=== PATIENT | female | born 1985 | race Caucasian/White ===

== ENCOUNTER 2017-04-02 06:10 | Inpatient (IN) | payer MEDICAID ==
[2017-04-02] MEDS ORDERED: MISOPROSTOL 200 MCG TAB PR ×2 (07:00→10:00)
[2017-04-02] MEDS ORDERED: OXYTOCIN 30 UNITS/LR 500 ML IV ×2 (07:00→10:00)
[2017-04-02] MEDS ORDERED: CARBOPROST 250 MCG INJ IM ×2 (07:00→10:00)
[2017-04-02] MEDS ORDERED: LIDOCAINE 1% (MPF) 30 ML INJ INJ (07:00)
[2017-04-02] MEDS ORDERED: BUTORPHANOL 2 MG INJ IV ×2 (07:00)
[2017-04-02] MEDS ORDERED: METHYLERGONOVINE 0.2 MG INJ IM ×2 (07:00→10:00)
[2017-04-02] MEDS: LACTATED RINGER'S 1,000 ML IV ×2 (08:05→17:54)
[2017-04-02] MEDS: AMPICILLIN 2 GM/NS (PMX) 100 ML IV (08:16)
[2017-04-02] MEDS: OXYTOCIN 30 UNITS/LR 500 ML IV ×2 (09:57→09:58)
[2017-04-02] MEDS ORDERED: ONDANSETRON 4 MG INJ IV (10:00)
[2017-04-02] MEDS ORDERED: DIPHENHYDRAMINE 50 MG INJ IV (10:00)
[2017-04-02] MEDS ORDERED: DIBUCAINE 1% 30 GM OINT PR (10:00)
[2017-04-02] MEDS ORDERED: DIPHENHYDRAMINE 25 MG CAP PO (10:00)
[2017-04-02] MEDS ORDERED: OXYCODONE/ASPIRIN (4.88/325) TAB PO ×2 (10:00)
[2017-04-02] MEDS ORDERED: SENNA/DOCUSATE NA (8.6MG/50MG) TAB PO (10:00)
[2017-04-02 10:02] LABS: ADD MAN DIFF? NO
[2017-04-02 10:11] LABS: BASOPHILS % 0.2 % (0.0-2.0); EOSINOPHILS % 0.2 % (0.0-7.0); HEMOGLOBIN 12.5 g/dl (12.0-16.0); MEAN PLATELET VOLUME 11.7 fl (7.4-10.4)
[2017-04-02 10:19] LABS: HEMATOCRIT 37.2 % (37.0-47.0); LYMPHOCYTES # 1.1 10^3/ul (0.8-2.9); LYMPHOCYTES % 11.8 % (15.0-51.0); MEAN CORPUSCULAR HGB CONC 33.6 g/dl (32.0-37.0); MEAN CORPUSCULAR VOLUME 83.2 fl (82.0-101.0); MONOCYTE # 0.4 10^3/ul (0.3-0.9); MONOCYTES % 4.9 % (0.0-11.0); NEUTROPHIL # 7.4 10^3/ul (1.6-7.5); NEUTROPHILS % 82.6 % (39.0-77.0); PLATELET COUNT 217 10^3/UL (140-415); RED BLOOD COUNT 4.47 10^6/ul (4.20-5.40); RED CELL DISTRIBUTION WIDTH 15.8 % (11.5-14.5)
[2017-04-02] MEDS ORDERED: AMPICILLIN 1 GM/NS (PMX) 50 ML IV (11:00)
[2017-04-02 11:07] LABS: PARTIAL THROMBOPLASTIN TIME 34.4 Sec (25.0-35.0); PROTIME 12.2 Sec (11.9-14.9)
[2017-04-02 11:43] LABS: WHITE BLOOD COUNT 12.2 10^3/ul (4.8-10.8)
[2017-04-02 11:43] LABS: ADD MAN DIFF? NO; BASOPHILS % 0.1 % (0.0-2.0); HEMATOCRIT 35.8 % (37.0-47.0); HEMOGLOBIN 12.2 g/dl (12.0-16.0); LYMPHOCYTES # 0.7 10^3/ul (0.8-2.9); MEAN CORPUSCULAR HGB CONC 34.1 g/dl (32.0-37.0); MEAN CORPUSCULAR VOLUME 82.3 fl (82.0-101.0); MEAN PLATELET VOLUME 11.2 fl (7.4-10.4); MONOCYTE # 0.3 10^3/ul (0.3-0.9); MONOCYTES % 2.3 % (0.0-11.0); NEUTROPHIL # 11.1 10^3/ul (1.6-7.5); NEUTROPHILS % 91.1 % (39.0-77.0); PLATELET COUNT 214 10^3/UL (140-415); RED BLOOD COUNT 4.35 10^6/ul (4.20-5.40); RED CELL DISTRIBUTION WIDTH 15.4 % (11.5-14.5)
[2017-04-02 11:50] LABS: HEPATITIS B SURFACE ANTIGEN NEGATIVE (NEGATIVE)
[2017-04-02] MEDS: LANOLIN 7 GM TUBE TOP (13:03)
[2017-04-02] MEDS: WITCH HAZEL/GLYCERIN PAD PR (13:03)
[2017-04-02] MEDS: IBUPROFEN 600 MG TAB PO ×2 (13:03→18:28)
[2017-04-02] MEDS: BENZOCAINE 20% 56 ML SPRAY TOP (13:04)
[2017-04-02] MEDS: SENNA/DOCUSATE NA (8.6MG/50MG) TAB PO (21:10)
[2017-04-02 21:53] LABS: RAPID PLASMA REAGIN NONREACTIVE (NR)
[2017-04-03] MEDS: IBUPROFEN 600 MG TAB PO ×5 (05:38→23:50)
[2017-04-03 08:58] LABS: ADD MAN DIFF? NO
[2017-04-03 09:04] LABS: BASOPHILS % 0.1 % (0.0-2.0); EOSINOPHILS % 0.6 % (0.0-7.0); HEMATOCRIT 31.6 % (37.0-47.0); HEMOGLOBIN 10.5 g/dl (12.0-16.0); LYMPHOCYTES # 1.9 10^3/ul (0.8-2.9); LYMPHOCYTES % 25.8 % (15.0-51.0); MEAN CORPUSCULAR HEMOGLOBIN 27.6 pg (29.0-33.0); MEAN CORPUSCULAR HGB CONC 33.2 g/dl (32.0-37.0); MEAN CORPUSCULAR VOLUME 82.9 fl (82.0-101.0); MONOCYTE # 0.4 10^3/ul (0.3-0.9); MONOCYTES % 5.9 % (0.0-11.0); NEUTROPHIL # 4.8 10^3/ul (1.6-7.5); NEUTROPHILS % 67.3 % (39.0-77.0); PLATELET COUNT 185 10^3/UL (140-415); RED BLOOD COUNT 3.81 10^6/ul (4.20-5.40); RED CELL DISTRIBUTION WIDTH 15.8 % (11.5-14.5)
[2017-04-03 09:04] LABS: WHITE BLOOD COUNT 7.2 10^3/ul (4.8-10.8)
[2017-04-03] MEDS: SENNA/DOCUSATE NA (8.6MG/50MG) TAB PO ×2 (09:25→21:55)
[2017-04-04] MEDS: IBUPROFEN 600 MG TAB PO ×2 (05:36→11:36)
[2017-04-04] MEDS: SENNA/DOCUSATE NA (8.6MG/50MG) TAB PO (09:22)
== END 2017-04-04 18:00 | disposition home or self-care (01) | DRG 775 ==
LOC: OBT 06:10 → L-D 06:11 → OBT 07:13 → L-D 06:52 → PP1 11:44
PROVIDERS: Obstetrics & Gynecology
PROC: 10E0XZZ Delivery of Products of Conception, External Approach (ICD-10-PCS; principal; 2017-04-02)
PROC: 0HQ9XZZ Repair Perineum Skin, External Approach (ICD-10-PCS; 2017-04-02)
PROC: 3E033VJ Introduction of Other Hormone into Peripheral Vein, Percutaneous Approach (ICD-10-PCS; 2017-04-02)
DX: O70.0 First degree perineal laceration during delivery (principal); O69.81X0 Labor and delivery complicated by cord around neck, without compression, not applicable or unspecified; Z3A.38 38 weeks gestation of pregnancy; Z37.0 Single live birth
CPT/HCPCS: 76815; 85025; 85610; 85730; 86592; 86850; 86900; 86901; 87340; 99464